=== PATIENT | male | born 1940 | race Caucasian/White ===

== ENCOUNTER 2018-08-05 15:03 | Observation (INO) ==
[2018-08-05] MEDS ORDERED: ASPIRIN 325 MG TABLET PO STA (15:29)
[2018-08-05 15:54] LABS: Basophils % 0.4 % (0.0-0.8); Eosinophils # 0.1 10*3/uL (0.0-0.87); Eosinophils % 1.9 % (0.00-10.9); Hematocrit 42.6 VOL% (42.0-52.0); Hemoglobin 13.6 GM/DL (14.0-18.0); Immature Granulocytes % 0.3 %; Immature Granulocytes Absolute 0.02 #; Lymphocytes # 1.7 10*3/uL (1.4-4.0); Mean Corpuscular HGB Conc 31.9 GM/DL (32-36); Mean Corpuscular Hemoglobin 29 PG (27-34); Mean Corpuscular Volume 90.1 FL (87-102); Mean Platelet Volume 11.5 FL (9.6-12.0); Monocytes # 0.6 10*3/uL (0.11-0.8); Monocytes % 8.4 % (1.7-12.7); Neutrophils # 4.4 10*3/uL (1.4-7.4); Platelet Count 108 T/CUMM (130-400); Red Blood Count 4.73 MC/CUMM (3.8-5.5); Red Cell Distribution Width 14.5 % (9.3-17.3); White Blood Count 6.8 T/CUMM (4-12)
[2018-08-05 16:15] LABS: Platelet Estimate Adequate
[2018-08-05 16:21] LABS: Alanine Aminotransferase 10 U/L (16-61); Albumin 3.3 G/DL (3.4-5.0); Alkaline Phosphatase 65 U/L (45-117); Aspartate Amino Transferase 16 U/L (0-37); Bilirubin,Total < 0.39 MG/DL (0.2-1.0); Blood Urea Nitrogen 22 MG/DL (7-18); Calcium 8.7 MG/DL (8.5-10.1); Glucose 100 MG/DL (74-106); Osmolality,Calculated 281.4 MOS/KG (273-304); Potassium 3.9 MMOL/L (3.5-5.1); Sodium 140 MMOL/L (136-145); Total Protein 7.5 G/DL (6.4-8.3)
[2018-08-05] MEDS ORDERED: PROMETHAZINE 25 MG TABLET PO PRN (17:21)
[2018-08-05] MEDS ORDERED: POTASSIUM CHLORIDE 20 MEQ TABLET PO PRN (17:21)
[2018-08-05] MEDS ORDERED: guaiFENesin/DM ER 600-30 MG TABLET PO PRN (17:21)
[2018-08-05] MEDS ORDERED: ONDANSETRON 4 MG/2 ML VIAL IV PRN (17:21)
[2018-08-05] MEDS ORDERED: DOCUSATE SODIUM 100 MG CAPSULE PO PRN (17:21)
[2018-08-05] MEDS ORDERED: diphenhydrAMINE CAP 25 MG CAPSULE PO PRN (17:21)
[2018-08-05] MEDS ORDERED: MAGNESIUM SULF RIDER 2 GM in PREMIX 1 EACH IV PRN (17:21)
[2018-08-05] MEDS ORDERED: LACTULOSE 20 GM/30 ML UDCUP PO PRN (17:21)
[2018-08-05] MEDS ORDERED: MAGNESIUM SULF RIDER 4 GM in PREMIX 1 EACH IV PRN (17:21)
[2018-08-05] MEDS ORDERED: ZALEPLON 5 MG CAPSULE PO PRN (17:21)
[2018-08-05] MEDS ORDERED: BISACODYL 5 MG TABLET PO PRN (17:21)
[2018-08-05 17:23] LABS: INR 1.7; PT Patient Result 18.4 SECS
[2018-08-05] MEDS ORDERED: ENOXAPARIN 80 MG/0.8 ML SYRINGE SUBCUT ONE (17:28)
[2018-08-05] MEDS ORDERED: NITROGLYCERIN SL 0.4 MG TABLET SL PRN (17:45)
[2018-08-05] MEDS ORDERED: hydrALAZINE 20 MG/1 ML VIAL IV PRN (17:47)
[2018-08-05] MEDS ORDERED: WARFARIN 1 MG TABLET PO SCH (20:00)
[2018-08-05] MEDS: ASPIRIN EC 81 MG TABLET PO SCH (20:22)
[2018-08-05] MEDS: ACETAMINOPHEN 325 MG TABLET PO SCH (20:27)
[2018-08-05] MEDS: FAMOTIDINE 20 MG TABLET PO SCH (20:27)
[2018-08-05] MEDS: GABAPENTIN 100 MG CAPSULE PO SCH (20:27)
[2018-08-05] MEDS: TEMAZEPAM 15 MG CAPSULE PO SCH (20:29)
[2018-08-05] MEDS: LORATADINE 10 MG TABLET PO SCH (20:30)
[2018-08-05] MEDS ORDERED: NIACIN 500 MG PO SCH (21:00)
[2018-08-05 23:27] LABS: Apearance,Urine CLEAR (Clear); Bilirubin,Urine Negative (Negative); Blood, Urine Negative (Negative); Glucose,Urine (UA) Negative (Negative); Hyaline Casts,Urine 1 /LPF (0-3); Ketones,Urine Negative (Negative); Nitrite,Urine Negative (Negative); Protein,Urine Negative; RBC,Urine 5 /HPF (0-4); Squamous Epithelial Cell,Urine Occasional /HPF (0-10); Urine Color Yellow (Yellow); Urine Specific Gravity 1.012 (1.001-1.035); Urine Urobilinogen < 2.0 EU/DL (0.2-1.0); WBC,Urine 1 /HPF (0-6)
[2018-08-06 04:04] LABS: Basophils % 0.7 % (0.0-0.8); Eosinophils % 4.4 % (0.00-10.9); Hematocrit 37.2 VOL% (42.0-52.0); Hemoglobin 11.8 GM/DL (14.0-18.0); Immature Granulocytes % 0.3 %; Lymphocytes # 1.7 10*3/uL (1.4-4.0); Lymphocytes % 29.1 % (21.2-54.2); Mean Corpuscular HGB Conc 31.7 GM/DL (32-36); Mean Corpuscular Hemoglobin 29 PG (27-34); Mean Corpuscular Volume 90.7 FL (87-102); Mean Platelet Volume 11.6 FL (9.6-12.0); Monocytes % 12.1 % (1.7-12.7); Neutrophils # 3.2 10*3/uL (1.4-7.4); Neutrophils % 53.4 % (38.7-73.9); Platelet Count 224 T/CUMM (130-400); Red Cell Distribution Width 14.6 % (9.3-17.3)
[2018-08-06 04:05] LABS: Eosinophils # 0.3 10*3/uL (0.0-0.87); Immature Granulocytes Absolute 0.02 #; Monocytes # 0.7 10*3/uL (0.11-0.8)
[2018-08-06 04:25] LABS: Blood Urea Nitrogen 23 MG/DL (7-18); Calcium 8.4 MG/DL (8.5-10.1); Cholesterol 112 MG/DL (50-200); Glucose 111 MG/DL (74-106); HDL Cholesterol 39 MG/DL (40-60); Osmolality,Calculated 285.3 MOS/KG (273-304); Potassium 3.8 MMOL/L (3.5-5.1); Risk Ratio 2.87; Sodium 141 MMOL/L (136-145); Triglycerides 169 MG/DL (2-150); VLDL CHOLESTEROL 33.8 MG/DL
[2018-08-06] MEDS ORDERED: POTASSIUM CHLORIDE RIDER 10 MEQ in PREMIX 1 EACH IV PRN (11:50)
[2018-08-06] MEDS ORDERED: SODIUM CHLORIDE 0.9% 1,000 ML IV SCH (12:00)
[2018-08-06] MEDS: ACETAMINOPHEN 325 MG TABLET PO SCH ×2 (12:05→21:02)
[2018-08-06] MEDS: POTASSIUM CHLORIDE 20 MEQ TABLET PO SCH (12:05)
[2018-08-06] MEDS: GABAPENTIN 100 MG CAPSULE PO SCH ×3 (12:05→21:02)
[2018-08-06] MEDS: FUROSEMIDE 40 MG TABLET PO SCH (12:13)
[2018-08-06] MEDS: amLODIPine 2.5 MG TABLET PO SCH (13:34)
[2018-08-06] MEDS: FAMOTIDINE 20 MG TABLET PO SCH ×2 (13:35→21:01)
[2018-08-06] MEDS: PANTOPRAZOLE 40 MG TABLET PO SCH (13:35)
[2018-08-06] MEDS ORDERED: DIAZEPAM 5 MG TABLET PO ONE (14:00)
[2018-08-06] MEDS ORDERED: diphenhydrAMINE CAP 25 MG CAPSULE PO ONE (14:00)
[2018-08-06] MEDS ORDERED: LIDOCAINE 1% 20 ML VIAL ONE (14:10)
[2018-08-06] MEDS ORDERED: fentaNYL 100 MCG/2 ML VIAL ONE (15:01)
[2018-08-06] MEDS ORDERED: MIDAZOLAM 2 MG/2 ML VIAL ONE (15:01)
[2018-08-06] MEDS ORDERED: ASPIRIN 325 MG TABLET ONE (15:23)
[2018-08-06] MEDS ORDERED: HEPARIN 5,000 UNIT/1 ML VIAL ONE (15:25)
[2018-08-06] MEDS ORDERED: fentaNYL 100 MCG/2 ML VIAL IV PRN (16:37)
[2018-08-06] MEDS ORDERED: WARFARIN 1 MG TABLET PO SCH (18:00)
[2018-08-06] MEDS: ASPIRIN EC 81 MG TABLET PO SCH (21:01)
[2018-08-06] MEDS: TEMAZEPAM 15 MG CAPSULE PO SCH (21:01)
[2018-08-06] MEDS: LORATADINE 10 MG TABLET PO SCH (21:02)
[2018-08-07 05:30] LABS: Basophils % 0.6 % (0.0-0.8); Eosinophils # 0.2 10*3/uL (0.0-0.87); Eosinophils % 3.7 % (0.00-10.9); Hematocrit 37.6 VOL% (42.0-52.0); Hemoglobin 11.7 GM/DL (14.0-18.0); Immature Granulocytes % 0.2 %; Immature Granulocytes Absolute 0.01 #; Lymphocytes # 1.4 10*3/uL (1.4-4.0); Lymphocytes % 21.9 % (21.2-54.2); Mean Corpuscular HGB Conc 31.1 GM/DL (32-36); Mean Corpuscular Hemoglobin 29 PG (27-34); Mean Corpuscular Volume 91.9 FL (87-102); Mean Platelet Volume 11.6 FL (9.6-12.0); Monocytes # 0.6 10*3/uL (0.11-0.8); Neutrophils # 4.2 10*3/uL (1.4-7.4); Neutrophils % 64.6 % (38.7-73.9); Platelet Count 215 T/CUMM (130-400); Red Blood Count 4.09 MC/CUMM (3.8-5.5); Red Cell Distribution Width 14.7 % (9.3-17.3); White Blood Count 6.4 T/CUMM (4-12)
[2018-08-07 05:36] LABS: INR 1.8; PT Patient Result 19.8 SECS
[2018-08-07 05:46] LABS: Calcium 8.3 MG/DL (8.5-10.1); Osmolality,Calculated 282.3 MOS/KG (273-304); Potassium 4.5 MMOL/L (3.5-5.1)
[2018-08-07 08:27] VITALS: BP 139/78
[2018-08-07] MEDS: POTASSIUM CHLORIDE 20 MEQ TABLET PO SCH (08:38)
[2018-08-07] MEDS: FAMOTIDINE 20 MG TABLET PO SCH (08:38)
[2018-08-07] MEDS: ACETAMINOPHEN 325 MG TABLET PO SCH (08:38)
[2018-08-07] MEDS: FUROSEMIDE 40 MG TABLET PO SCH (08:38)
[2018-08-07] MEDS: GABAPENTIN 100 MG CAPSULE PO SCH (08:38)
[2018-08-07] MEDS: PANTOPRAZOLE 40 MG TABLET PO SCH (08:39)
[2018-08-07] MEDS: amLODIPine 2.5 MG TABLET PO SCH (08:39)
== END 2018-08-07 13:20 | disposition home or self-care (01) ==
LOC: EDUNIT# → EDBD → N.ED 15:03 → N.EDINP 15:03 → N.TELES 18:45
PROVIDERS: ADMIT Internal Medicine Cardiovascular Disease; ATTEND Internal Medicine Cardiovascular Disease

== ENCOUNTER 2018-11-23 11:30 | Observation (INO) ==
[2018-11-23] MEDS ORDERED: ASPIRIN 325 MG TABLET PO STA (11:58)
[2018-11-23 12:21] LABS: Basophils # 0.1 10*3/uL (0.0-0.2); Basophils % 0.7 % (0.0-0.8); Eosinophils # 0.2 10*3/uL (0.0-0.87); Eosinophils % 2.6 % (0.00-10.9); Hematocrit 40.1 VOL% (42.0-52.0); Hemoglobin 12.7 GM/DL (14.0-18.0); Immature Granulocytes % 0.4 %; Immature Granulocytes Absolute 0.03 #; Lymphocytes # 1.5 10*3/uL (1.4-4.0); Lymphocytes % 18.7 % (21.2-54.2); Mean Corpuscular HGB Conc 31.7 GM/DL (32-36); Mean Corpuscular Volume 90.7 FL (87-102); Mean Platelet Volume 10.5 FL (9.6-12.0); Monocytes % 8.2 % (1.7-12.7); Neutrophils % 69.4 % (38.7-73.9); Platelet Count 212 T/CUMM (130-400); Red Blood Count 4.42 MC/CUMM (3.8-5.5); Red Cell Distribution Width 15.4 % (9.3-17.3); White Blood Count 8.1 T/CUMM (4-12)
[2018-11-23 12:30] LABS: INR 1.8; PT Patient Result 19.8 SECS; Partial Thromboplastin Time 30.6 SECS (0-40)
[2018-11-23 13:10] LABS: Alanine Aminotransferase 10 U/L (16-61); Albumin 3.9 G/DL (3.4-5.0); Alkaline Phosphatase 71 U/L (45-117); Aspartate Amino Transferase 12 U/L (0-37); Bilirubin,Total < 0.39 MG/DL (0.2-1.0); Blood Urea Nitrogen 26 MG/DL (7-18); Calcium 9.2 MG/DL (8.5-10.1); Glucose 87 MG/DL (74-106); Osmolality,Calculated 278.7 MOS/KG (273-304); Total Protein 7.8 G/DL (6.4-8.3)
[2018-11-23] MEDS ORDERED: ONDANSETRON 4 MG/2 ML VIAL IV PRN (15:41)
[2018-11-23] MEDS ORDERED: BISACODYL 5 MG TABLET PO PRN (15:41)
[2018-11-23] MEDS ORDERED: DOCUSATE SODIUM 100 MG CAPSULE PO PRN (15:41)
[2018-11-23] MEDS ORDERED: ACETAMINOPHEN 325 MG TABLET PO PRN (15:41)
[2018-11-23] MEDS ORDERED: PANTOPRAZOLE 40 MG VIAL IV SCH (16:15)
[2018-11-23 16:20] LABS: Risk Ratio 2.92; Thyroid Stimulating Hormone 1.17 uIU/ml (0.358-3.74); VLDL CHOLESTEROL 45.8 MG/DL
[2018-11-23] MEDS ORDERED: ALBUTEROL 2.5 MG/3 ML NEB RESP TX PRN (16:33)
[2018-11-23] MEDS: SODIUM CHLORIDE 0.9% 1,000 ML IV SCH (17:57)
[2018-11-23] MEDS: WARFARIN 1 MG TABLET PO SCH (17:57)
[2018-11-23 20:25] LABS: Apearance,Urine CLEAR (Clear); Bacteria,Urine Occasional /HPF (Few); Bilirubin,Urine Negative (Negative); Blood, Urine Large mg/dL (Negative); Glucose,Urine (UA) Negative (Negative); Hyaline Casts,Urine 28 /LPF (0-3); Ketones,Urine Negative (Negative); Mucus,Urine Occasional /LPF (Occasional); Nitrite,Urine Negative (Negative); Protein,Urine 30 MG/DL; RBC,Urine 3 /HPF (0-4); Squamous Epithelial Cell,Urine Occasional /HPF (0-10); Urine Color Yellow (Yellow); Urine Urobilinogen < 2.0 EU/DL (0.2-1.0); WBC,Urine 2 /HPF (0-6)
[2018-11-23] MEDS ORDERED: diphenhydrAMINE CAP 25 MG CAPSULE PO SCH (21:00)
[2018-11-23] MEDS ORDERED: NIACIN 1000 MG PO SCH (21:00)
[2018-11-23] MEDS ORDERED: TEMAZEPAM 15 MG CAPSULE PO SCH (21:00)
[2018-11-23] MEDS ORDERED: ROSUVASTATIN 20 MG TABLET PO SCH (21:00)
[2018-11-23] MEDS: PANTOPRAZOLE 40 MG VIAL IV SCH (21:26)
[2018-11-23] MEDS: METOPROLOL SUCCINATE XL 50 MG TABLET PO SCH (21:26)
[2018-11-24 04:52] LABS: Basophils # 0.1 10*3/uL (0.0-0.2); Basophils % 0.8 % (0.0-0.8); Eosinophils # 0.3 10*3/uL (0.0-0.87); Eosinophils % 3.9 % (0.00-10.9); Hematocrit 36.5 VOL% (42.0-52.0); Hemoglobin 11.5 GM/DL (14.0-18.0); Immature Granulocytes % 0.3 %; Immature Granulocytes Absolute 0.02 #; Lymphocytes # 1.5 10*3/uL (1.4-4.0); Mean Corpuscular HGB Conc 31.5 GM/DL (32-36); Mean Corpuscular Volume 91.3 FL (87-102); Mean Platelet Volume 10.8 FL (9.6-12.0); Platelet Count 197 T/CUMM (130-400); Red Cell Distribution Width 15.3 % (9.3-17.3); White Blood Count 6.3 T/CUMM (4-12)
[2018-11-24 05:15] LABS: Calcium 8.3 MG/DL (8.5-10.1); Osmolality,Calculated 287.3 MOS/KG (273-304)
[2018-11-24 05:20] LABS: PT Patient Result 21.8 SECS
[2018-11-24] MEDS: SODIUM CHLORIDE 0.9% 1,000 ML IV SCH (06:30)
[2018-11-24] MEDS ORDERED: DILTIAZEM CD 120 MG CAPSULE PO SCH (09:00)
[2018-11-24] MEDS ORDERED: ASPIRIN EC 81 MG TABLET PO SCH (09:00)
[2018-11-24] MEDS: PANTOPRAZOLE 40 MG VIAL IV SCH (09:21)
[2018-11-24] MEDS: WARFARIN 1 MG TABLET PO SCH (09:25)
[2018-11-24] MEDS: METOPROLOL SUCCINATE XL 50 MG TABLET PO SCH (09:27)
[2018-11-24 20:45] VITALS: BP 125/65
== END 2018-11-24 18:59 | disposition home or self-care (01) ==
LOC: EDUNIT# → EDBD → N.EDINP 11:30 → N.ED 11:30 → N.EDINP 16:19 → N.4E 16:39
PROVIDERS: ADMIT Internal Medicine; ATTEND Internal Medicine

== ENCOUNTER 2021-05-09 10:09 | Inpatient (IN) ==
[2021-05-09] MEDS ORDERED: methylPREDNISolone SOD SUC 125 MG/2 ML VIAL IV STA (10:53)
[2021-05-09] MEDS ORDERED: ALBUTEROL/IPRATROPIUM 3 ML NEB RESP TX STA (10:53)
[2021-05-09 11:30] LABS: Basophils % 0.2 % (0.0-0.8); Eosinophils % 0.5 % (0.00-10.9); Hematocrit 29.2 VOL% (42.0-52.0); Hemoglobin 9.5 GM/DL (14.0-18.0); Immature Granulocytes % 0.5 %; Immature Granulocytes Absolute 0.04 #; Lymphocytes # 0.7 10*3/uL (1.4-4.0); Lymphocytes % 9.2 % (21.2-54.2); Mean Corpuscular HGB Conc 32.5 GM/DL (32-36); Mean Corpuscular Volume 103.2 FL (87-102); Mean Platelet Volume 11.7 FL (9.6-12.0); Monocytes % 6.1 % (1.7-12.7); Neutrophils % 83.5 % (38.7-73.9); Platelet Count 132 T/CUMM (130-400); Red Blood Count 2.83 MC/CUMM (3.8-5.5); Red Cell Distribution Width 17.2 % (9.3-17.3); White Blood Count 8.1 T/CUMM (4-12)
[2021-05-09 11:50] LABS: Alanine Aminotransferase 12 U/L (16-61); Albumin 2.8 G/DL (3.4-5.0); Alkaline Phosphatase 90 U/L (45-117); Aspartate Amino Transferase 35 U/L (0-37); Blood Urea Nitrogen 19 MG/DL (7-18); Calcium 8.6 MG/DL (8.5-10.1); Carbon Dioxide 29 MMOL/L (21-32); Estimated Glom Filtration Rate 39 ML/MIN; Glucose 112 MG/DL (74-106); Osmolality,Calculated 275.8 MOS/KG (273-304); Potassium 5.1 MMOL/L (3.5-5.1); Sodium 137 MMOL/L (136-145); Total Protein 7.4 G/DL (6.4-8.2)
[2021-05-09 12:04] LABS: Band Neutrophils 1 % (0-10); Lymphocytes 13 % (20-55); Segmented Neutrophils 78 % (50-85); Total Cells Counted 100
[2021-05-09 12:05] LABS: Ovalocytes Few; Platelet Estimate Adequate; Reactive Lymphocytes Few
[2021-05-09 12:47] LABS: INR 2.9
[2021-05-09 12:48] LABS: PT Patient Result 29.9 SECS (10.5-12.0)
[2021-05-09] MEDS ORDERED: GLUCAGON 1 MG VIAL IM PRN (14:23)
[2021-05-09] MEDS ORDERED: DOCUSATE SODIUM 100 MG CAPSULE PO PRN (14:23)
[2021-05-09] MEDS ORDERED: DEXTROSE 50% 25 GM/50 ML VIAL IV PRN (14:23)
[2021-05-09] MEDS ORDERED: hydrALAZINE 20 MG/1 ML VIAL IV PRN (14:23)
[2021-05-09] MEDS ORDERED: ONDANSETRON 4 MG/2 ML VIAL IV PRN (14:23)
[2021-05-09] MEDS ORDERED: ACETAMINOPHEN 325 MG TABLET PO PRN (14:23)
[2021-05-09] MEDS: methylPREDNISolone SOD SUC 40 MG/1 ML VIAL IV SCH ×2 (15:22→20:25)
[2021-05-09] MEDS: cefTRIAXone 1,000 MG in SODIUM CHLORIDE 0.9% 100 ML IV SCH (15:30)
[2021-05-09] MEDS: AZITHROMYCIN INJ 500 MG in SODIUM CHLORIDE 0.9% 250 ML IV SCH (16:28)
[2021-05-09] MEDS ORDERED: LORazepam 0.5 MG TABLET PO PRN (16:53)
[2021-05-09] MEDS ORDERED: FUROSEMIDE 40 MG TABLET PO PRN (16:53)
[2021-05-09] MEDS ORDERED: WARFARIN 2 MG TABLET PO SCH (17:00)
[2021-05-09] MEDS ORDERED: WARFARIN 1 MG TABLET PO SCH (17:00)
[2021-05-09] MEDS: ALBUTEROL/IPRATROPIUM 3 ML NEB RESP TX SCH (19:40)
[2021-05-09] MEDS: ROSUVASTATIN 20 MG TABLET PO SCH (20:23)
[2021-05-09] MEDS: METOPROLOL SUCCINATE XL 50 MG TABLET PO SCH (20:24)
[2021-05-09] MEDS: ASPIRIN EC 81 MG TABLET PO SCH (20:24)
[2021-05-09] MEDS: ALFUZOSIN 10 MG TABLET PO SCH (20:24)
[2021-05-09] MEDS: NIACIN 500 MG PO SCH (22:23)
[2021-05-10] MEDS: methylPREDNISolone SOD SUC 40 MG/1 ML VIAL IV SCH ×4 (02:35→20:00)
[2021-05-10 07:16] LABS: Hematocrit 24.5 VOL% (42.0-52.0); Hemoglobin 8.2 GM/DL (14.0-18.0); Immature Granulocytes % 0.7 %; Immature Granulocytes Absolute 0.03 #; Lymphocytes # 0.4 10*3/uL (1.4-4.0); Lymphocytes % 9.9 % (21.2-54.2); Mean Corpuscular HGB Conc 33.5 GM/DL (32-36); Mean Corpuscular Volume 100.4 FL (87-102); Mean Platelet Volume 10.4 FL (9.6-12.0); Monocytes % 1.4 % (1.7-12.7); Platelet Count 128 T/CUMM (130-400); Red Blood Count 2.44 MC/CUMM (3.8-5.5); Red Cell Distribution Width 16.7 % (9.3-17.3); White Blood Count 4.3 T/CUMM (4-12)
[2021-05-10 07:25] LABS: INR 3.2
[2021-05-10] MEDS: ALBUTEROL/IPRATROPIUM 3 ML NEB RESP TX SCH ×4 (07:33→19:34)
[2021-05-10 07:34] LABS: Calcium 8.7 MG/DL (8.5-10.1); Osmolality,Calculated 283.5 MOS/KG (273-304); Potassium 3.6 MMOL/L (3.5-5.1)
[2021-05-10 07:44] LABS: Band Neutrophils 1 % (0-10); Hypochromasia 1+; Lymphocytes 7 % (20-55); Microcytosis 1+; Platelet Estimate Normal; Segmented Neutrophils 90 % (50-85); Total Cells Counted 100
[2021-05-10 07:56] LABS: PT Patient Result 32.9 SECS (10.5-12.0)
[2021-05-10] MEDS ORDERED: TUBERCULIN SKIN TEST 0.1 ML SYRINGE INTRADERM ONE (08:23)
[2021-05-10] MEDS: POTASSIUM CHLORIDE 20 MEQ TABLET PO SCH (10:15)
[2021-05-10] MEDS: METOPROLOL SUCCINATE XL 50 MG TABLET PO SCH ×2 (10:16→20:03)
[2021-05-10] MEDS: DESITIN 4OZ/NYSTATIN 15 GRAM MIXTURE PASTE TOP SCH ×2 (16:43→20:08)
[2021-05-10] MEDS: cefTRIAXone 1,000 MG in SODIUM CHLORIDE 0.9% 100 ML IV SCH (16:43)
[2021-05-10] MEDS: AZITHROMYCIN INJ 500 MG in SODIUM CHLORIDE 0.9% 250 ML IV SCH (17:48)
[2021-05-10] MEDS ORDERED: WARFARIN 1 MG TABLET PO SCH (18:00)
[2021-05-10] MEDS: ROSUVASTATIN 20 MG TABLET PO SCH (20:02)
[2021-05-10] MEDS: ALFUZOSIN 10 MG TABLET PO SCH (20:03)
[2021-05-10] MEDS: ASPIRIN EC 81 MG TABLET PO SCH (20:03)
[2021-05-10] MEDS: NIACIN 500 MG PO SCH (20:07)
[2021-05-11] MEDS: ALBUTEROL/IPRATROPIUM 3 ML NEB RESP TX SCH ×2 (02:06→07:39)
[2021-05-11] MEDS: methylPREDNISolone SOD SUC 40 MG/1 ML VIAL IV SCH ×2 (03:08→10:16)
[2021-05-11 04:37] LABS: INR 3.3
[2021-05-11 04:38] LABS: PT Patient Result 33.4 SECS (10.5-12.0)
[2021-05-11 07:41] LABS: Calcium 8.9 MG/DL (8.5-10.1); Osmolality,Calculated 283.8 MOS/KG (273-304); Potassium 4.1 MMOL/L (3.5-5.1)
[2021-05-11 08:35] VITALS: BP 141/53
[2021-05-11] MEDS ORDERED: THEOPHYLLINE ER (24 HR) 400 MG CAPSULE PO SCH (09:00)
[2021-05-11] MEDS ORDERED: ROSUVASTATIN 10 MG TABLET PO SCH (09:00)
[2021-05-11] MEDS: METOPROLOL SUCCINATE XL 50 MG TABLET PO SCH (10:16)
[2021-05-11] MEDS: POTASSIUM CHLORIDE 20 MEQ TABLET PO SCH (10:16)
[2021-05-11] MEDS: DESITIN 4OZ/NYSTATIN 15 GRAM MIXTURE PASTE TOP SCH (10:17)
[2021-05-11] MEDS ORDERED: WARFARIN 1 MG TABLET PO SCH (18:00)
== END 2021-05-11 12:30 | disposition home health service (06) | DRG 190 ==
LOC: EDBD → EDUNIT# → N.ED 10:09 → N.2W 15:49 → SUATTDRO 16:12 → N.EDINP 16:12 → N.2W 16:14
PROVIDERS: ADMIT Internal Medicine; ATTEND Internal Medicine